=== PATIENT | male | born 1955 | race Caucasian/White ===

== ENCOUNTER 2020-08-04 12:48 | Emergency (ER) | payer MEDICARE, BC ==
[2020-08-04] MEDS ORDERED: Amoxicillin 500 MG Cap PO ONE (12:49)
[2020-08-04] MEDS ORDERED: Take Home: Amoxicillin 500 MG Cap, 2 Cap Pack PO ONE (12:59)
--- NOTE | 2020-08-04 13:00 | EDM.PDOC ---
ED HPI GENERAL MEDICAL PROBLEM - General Chief Complaint: General Stated Complaint: Sore Throat Time Seen by Provider: 08/04/20 12:49 Source of Information: Reports: Patient History Limitations: Reports: No Limitations - History of Present Illness INITIAL COMMENTS - FREE TEXT/NARRATIVE: This patient is a 65 year old male that presents to the ER with complaint of sore throat. This patient reports that yesterday he started with runny nose, congestion, drainage, and nonproductive cough, He reports then yesterday evening he started with sore throat on the left side. He reports hurts to eat and drink. Patient reports his was seen on Wednesday for sinus infection. Patient reports he has not had shortness of breath, fever, chest pain, neck pain or stiffness. He reports no airway closure or difficulty breathing. Denies loss of taste or smell. Onset: Gradual Onset Date: 08/03/20 Duration: Day(s): (1) Severity: Mild Improves with: Reports: None Worsens with: Reports: None Associated Symptoms: Reports: Cough. Denies: Confusion, Chest Pain, cough w sputum, Diaphoresis, Fever/Chills, Headaches, Loss of Appetite, Malaise, Nausea/Vomiting, Rash, Seizure, Shortness of Breath, Syncope, Weakness throat Pain Score (Numeric/FACES): 6 - Related Data Allergies Allergy/AdvReac Type Severity Reaction Status Date / Time No Known Allergies Allergy Verified 08/04/20 12:49 Home Meds: Home Meds Ibuprofen 400 mg PO BID 07/18/19 [History] Lisinopril/Hydrochlorothiazide [Lisinopril-Hctz 20-25 mg Tab] 1 tab PO DAILY 07/18/19 [History] Metoprolol Succinate 50 mg PO DAILY 07/18/19 [History] Potassium Chloride 10 meq PO BID 07/18/19 [History] amLODIPine Besylate [Amlodipine Besylate] 10 mg PO DAILY 07/18/19 [History] Amoxicillin 1,000 mg PO DAILY #16 capsule 08/04/20 [Rx] Past Medical History Cardiovascular History: Reports: Hypertension - Past Surgical History GI Surgical History: Reports: Hernia Repair/Other Musculoskeletal Surgical History: Reports: Other (See Below) Other Musculoskeletal Surgeries/Procedures:: Right hand tendon repair ED ROS GENERAL - Review of Systems Review Of Systems: See Below Constitutional: Reports: No Symptoms HEENT: Reports: Rhinitis, Sinus Problem, Throat Pain. Denies: Throat Swelling Respiratory: Reports: No Symptoms, Cough. Denies: Shortness of Breath, Wheezing, Pleuritic Chest Pain, Sputum, Hemoptysis Cardiovascular: Reports: No Symptoms Endocrine: Reports: No Symptoms GI/Abdominal: Reports: No Symptoms : Reports: No Symptoms Musculoskeletal: Reports: No Symptoms Skin: Reports: No Symptoms Neurological: Reports: No Symptoms Psychiatric: Reports: No Symptoms Hematologic/Lymphatic: Reports: No Symptoms Immunologic: Reports: No Symptoms ED EXAM, GENERAL - Physical Exam Exam: See Below Exam Limited By: No Limitations General Appearance: Alert, WD/WN, No Apparent Distress Eye Exam: Bilateral Eye: Normal Inspection, PERRL Ears: Normal External Exam, Normal Canal, Hearing Grossly Normal, Normal TMs Ear Exam: Bilateral Ear: Auricle Normal, Canal Normal, TM normal Nose: Normal Inspection, Normal Mucosa, No Blood Throat/Mouth: Normal Lips, Normal Teeth, Normal Gums, Normal Voice, No Airway Compromise, Other (post nasal gtt, pharyngeal erythema. No exudate, no swelling, no peritonsular abscess.) Head: Atraumatic, Normocephalic Neck: Normal Inspection, Supple, Non-Tender, Full Range of Motion. No: Lymphadenopathy (L), Lymphadenopathy (R) Respiratory/Chest: No Respiratory Distress, Lungs Clear, Normal Breath Sounds, No Accessory Muscle Use Cardiovascular: Normal Peripheral Pulses, Regular Rate, Rhythm, No Edema, No Gallop, No JVD, No Murmur, No Rub Peripheral Pulses: 2+: Radial (L), Radial (R) Extremities: Normal Inspection Neurological: Alert, Oriented Psychiatric: Normal Affect, Normal Mood Skin Exam: Warm, Dry, Intact, Normal Color, No Rash Lymphatic: No Adenopathy Course - Vital Signs Last Recorded V/S: Last Vital Signs Temp 98.1 F 08/04/20 12:49 Pulse 84 08/04/20 12:49 Resp 16 08/04/20 12:49 BP 147/79 H 08/04/20 12:49 Pulse Ox 98 08/04/20 12:49 - Orders/Labs/Meds Meds: Medications Discontinued Medications Generic Name Dose Route Start Last Admin Trade Name Freq PRN Reason Stop Dose Admin Amoxicillin 2 packet 08/04/20 12:59 08/04/20 13:04 Take Home: Amoxicillin 500 Mg, 2 Cap Pack PO 08/04/20 13:00 2 packet ONETIME ONE Administration Departure - Departure Time of Disposition: 12:55 Disposition: Home, Self-Care 01 Condition: Fair Clinical Impression: Viral pharyngitis, Viral upper respiratory illness - Discharge Information *PRESCRIPTION DRUG MONITORING PROGRAM REVIEWED*: Not Applicable *COPY OF PRESCRIPTION DRUG MONITORING REPORT IN PATIENT OMER: Not Applicable Prescriptions: Amoxicillin 1,000 mg PO DAILY #16 capsule Instructions: Pharyngitis, [id number] Forms: ED Department Discharge Additional Instructions: Followup with primary care provider if no improvement or worsening Return to the ER for worsening of condition or any emergent concerns such as airway closing, not able to swallow, or other concerns May use over the counter numbing throat sprays May use over the counter medications for cold symptoms Amoxicillin 500mg 2 pills once a day for 10 days total #4 given take home in ER. Remaining sent to pharmacy Sepsis Event Note (ED) - Focused Exam Vital Signs: Vital Signs Temp Pulse Resp BP Pulse Ox 08/04/20 12:49 98.1 F 84 16 147/79 H 98 - Assessment/Plan Plan: PLEASE SEE RN NOTE FOR PFSH
== END 2020-08-04 13:34 | disposition home or self-care (01) ==
LOC: CC.ED 12:48
DX: J02.9 Acute pharyngitis, unspecified (principal); I10 Essential (primary) hypertension; Z79.899 Other long term (current) drug therapy
CPT/HCPCS: 99283; A9270-GY

== ENCOUNTER 2020-09-23 11:34 | Emergency (ER) | payer MEDICARE, BC ==
[2020-09-23 12:28] LABS: CHLORIDE,CL 102 mEq/L (98-106); SODIUM,NA 141 mEq/L (136-145)
--- NOTE | 2020-09-23 12:29 | EDM.PDOC ---
<Kemar Cooper - Last Filed: 09/23/20 16:55> ED HPI GENERAL MEDICAL PROBLEM - General Chief Complaint: Cardiovascular Problem Stated Complaint: PALPITATIONS/CAME FROM THE CLINIC Time Seen by Provider: 09/23/20 11:34 Source of Information: Reports: Patient History Limitations: Reports: No Limitations - History of Present Illness INITIAL COMMENTS - FREE TEXT/NARRATIVE: Pk is a 65 yo male who presented to the clinic today with concerns of a fast heart rate. He has been feeling palpitations since yesterday and admits he had the same thing a little over a year ago. Was transferred to [facility] in [place] and underwent a complete cardiac workup. States everything came back okay then. Admits he was discharge home on a blood thinner, metoprolol and Rythmol. Hasn't had an episode since. States on Wednesday morning around 0430 he did wake up and just felt restless. Admits he called into the ED yesterday and they told him to continue taking his blood thinner and cardiac medications. Symptoms still present this morning and presented to the clinic. Denies any COVID symptoms; however does state his niece was found positive about a week ago and was around her briefly 10 days ago. Location: Reports: Chest - Related Data Allergies Allergy/AdvReac Type Severity Reaction Status Date / Time No Known Allergies Allergy Verified 09/23/20 11:55 Home Meds: Home Meds Ibuprofen 400 mg PO BID PRN 07/18/19 [History] amLODIPine Besylate [Amlodipine Besylate] 10 mg PO DAILY 07/18/19 [History] Apixaban [Eliquis] 5 mg PO BID 09/23/20 [History] Metoprolol Tartrate 25 mg PO BID #60 tablet 09/23/20 [Rx] Propafenone HCl 150 mg PO TID 09/23/20 [History] atorvaSTATin [Lipitor] 10 mg PO DAILY 09/23/20 [History] Past Medical History Cardiovascular History: Reports: Afib, Arrhythmia, Hypertension Respiratory History: Reports: None Gastrointestinal History: Reports: Other (See Below) (obesity) Genitourinary History: Reports: None Musculoskeletal History: Reports: None Neurological History: Reports: None Psychiatric History: Reports: Anxiety - Past Surgical History GI Surgical History: Reports: Hernia Repair/Other Musculoskeletal Surgical History: Reports: Other (See Below) Other Musculoskeletal Surgeries/Procedures:: Right hand tendon repair Social & Family History - Family History Family Medical History: Noncontributory ED ROS GENERAL - Review of Systems Constitutional: Denies: Fever, Chills, Weakness, Diaphoresis, Decreased Appetite HEENT: Reports: No Symptoms Respiratory: Denies: Shortness of Breath, Wheezing, Cough Cardiovascular: Reports: Palpitations. Denies: Chest Pain, Lightheadedness, Syncope GI/Abdominal: Reports: No Symptoms : Reports: No Symptoms Musculoskeletal: Reports: No Symptoms Skin: Reports: No Symptoms Neurological: Reports: No Symptoms. Denies: Dizziness, Headache Psychiatric: Reports: Anxiety (states just an anxious feeling) ED EXAM, GENERAL - Physical Exam Exam: See Below Exam Limited By: No Limitations General Appearance: Alert, WD/WN, No Apparent Distress Ears: Normal External Exam, Normal Canal, Hearing Grossly Normal, Normal TMs Nose: Normal Inspection, Normal Mucosa, No Blood Throat/Mouth: Normal Inspection, Normal Lips, Normal Teeth, Normal Gums, Normal Oropharynx, Normal Voice, No Airway Compromise Head: Atraumatic, Normocephalic Neck: Normal Inspection, Supple, Non-Tender Respiratory/Chest: No Respiratory Distress, Lungs Clear, Normal Breath Sounds, No Accessory Muscle Use Cardiovascular: No Murmur, Tachycardia GI/Abdominal: Normal Bowel Sounds, Soft, No Organomegaly, No Distention Extremities: Normal Inspection, Normal Range of Motion, No Pedal Edema, Normal Capillary Refill Neurological: Alert, Oriented, Normal Cognition, No Motor/Sensory Deficits Psychiatric: Normal Affect, Normal Mood Skin Exam: Warm, Dry, Intact, Normal Color, No Rash Course - Re-Assessments/Exams Free Text/Narrative Re-Assessment/Exam: Consulted with dough scaler and mixer at [facility]. Recommend giving Rhythmol dose this afternoon and monitor if heart rate decreases. Recommend having cardiac event monitor placed as well. Patient transferred to the floor under extended ER and afternoon dose of Rhythmol was given. Heart rate did not slow down and remained in the 120's. Patient was given 25mg of Metoprolol Tartrate which did slow rate down to low 100's. Will observe for a few hours to confirm rate is controlled and symptoms subsided. Consulted with Penny Bae, on- call provider, and is aware of current treatment. Departure - Departure Disposition: Home, Self-Care 01 Clinical Impression: Atrial fibrillation with RVR Prescriptions: Metoprolol Tartrate 25 mg PO BID #60 tablet Instructions: Atrial Fibrillation, [id number] Referrals: Jaren Parikh MD [Primary Care Provider] - Forms: ED Department Discharge Additional Instructions: - Switch to 25 mg Metoprolol Tartrate twice daily. Script sent to [facility]. - Stop Metoprolol Succinate 25 mg daily - Continue all other home medications - Event monitor to be placed at time of discharge. Will follow up pending results. - Monitor BP at home daily - Follow up with PCP for recheck 5-7 days, sooner if needed - Return to ED for any emergent needs <Penny Powell - Last Filed: 09/23/20 21:02> ED HPI GENERAL MEDICAL PROBLEM - General Source of Information: Reports: Patient History Limitations: Reports: No Limitations - History of Present Illness Location: Reports: Chest ED ROS GENERAL - Review of Systems Review Of Systems: See Below Course - Vital Signs Last Recorded V/S: Last Vital Signs Temp 98.9 F 09/23/20 18:31 Pulse 83 09/23/20 18:31 Resp 16 09/23/20 18:31 BP 110/73 09/23/20 18:31 Pulse Ox 96 09/23/20 18:31 - Orders/Labs/Meds Orders: Active Orders 24 hr Category Date Time Status Chest 2V [CR] Stat Exams 09/23/20 11:38 Taken Event Monitor [EK] Routine Ther 09/23/20 Ordered Labs: Laboratory Tests 09/23/20 09/23/20 09/23/20 Range/Units 11:38 12:02 12:02 WBC 11.6 H (5.0-10.0) 10^3/uL RBC 5.89 (4.50-6.00) 10^6/uL Hgb 16.7 (14.0-18.0) g/dL Hct 50.1 (40.0-54.0) % MCV 85.1 (82.0-94.0) fL MCH 28.4 (27.0-32.0) pg MCHC 33.3 (33.0-38.0) g/dL RDW Coeff of Delma 14.5 (11.0-15.0) % Plt Count 333 (150-400) 10^3/uL Neut % (Auto) 87.2 H (35-85) % Lymph % (Auto) 6.5 L (10-55) % Hardeman % (Auto) 5.9 (0-16) % Eos % (Auto) 0.1 (0-5) % Baso % (Auto) 0.3 (0-3) % Neut # (Auto) 10.10 H (1.80-7.00) 10^3/uL Lymph # (Auto) 0.75 L (1.00-4.80) 10^3/uL Hardeman # (Auto) 0.68 (0.00-0.80) 10^3/uL Eos # (Auto) 0.01 (0.00-0.45) 10^3/uL Baso # (Auto) 0.04 10^3/uL Sodium 141 (136-145) mEq/L Potassium 3.5 (3.5-5.0) mEq/L Chloride 102 (98-106) mEq/L Carbon Dioxide 29 (21-32) mmol/L BUN 16 (7-18) mg/dL Creatinine 1.1 (0.7-1.3) mg/dL Est Cr Clr Drug Dosing 71.31 mL/min Estimated GFR (MDRD) > 60 (>=60) mL/min Glucose 134 H (75-99) mg/dL Calcium 9.5 (8.4-10.1) mg/dL Total Bilirubin 1.0 (0.0-1.0) mg/dL AST 19 (15-37) U/L ALT 23 (12-78) U/L Alkaline Phosphatase 104 (46-116) U/L Creatine Kinase 103 (35-232) U/L Troponin I 0.042 (0.00-0.06) ng/mL Total Protein 7.8 (6.4-8.2) g/dL Albumin 4.0 (3.4-5.0) g/dL TSH, Ultra Sensitive 0.72 (0.36-5.60) uIU/mL SARS CoV-2 RNA Rapid SHITAL Negative (NEGATIVE) Meds: Medications Discontinued Medications Generic Name Dose Route Start Last Admin Trade Name Freq PRN Reason Stop Dose Admin Metoprolol Tartrate 25 mg 09/23/20 16:00 09/23/20 16:06 Lopressor PO 09/23/20 16:01 25 mg ONETIME ONE Administration Departure - Departure Time of Disposition: 18:30 Condition: Good Sepsis Event Note (ED) - Focused Exam Vital Signs: Vital Signs Temp Pulse Pulse Resp BP BP Pulse Ox 09/23/20 18:31 98.9 F 83 16 110/73 96 09/23/20 16:57 98.9 F 92 16 124/60 96 09/23/20 16:06 128 H 127/78 09/23/20 15:59 99.1 F 128 H 16 128/78 96 09/23/20 12:50 98.0 F 128 H 20 150/87 H 99 - Problem List & Annotations (1) Atrial fibrillation with RVR SNOMED Code(s): 559896416566451 Code(s): I48.91 - UNSPECIFIED ATRIAL FIBRILLATION Status: Acute - Assessment/Plan Assessment:: A Fib with RVR Plan: Patient was initially seen in ED by my colleague Ej Cooper. I resumed care as he was kept in extended ER for ongoing monitoring. Cardiology was consulted and recommended giving dose of Rhythmol. He did get dose of this and pulse improved to 100s. He was monitored for some time. Did then opt to give 25 mg dose of metoprolol tartrate. He was monitored for 2 hours following this. Pulse did improve to 70s-80s. BP stable 110/70s. Patient was feeling better. He will be discharged home with Cardiac Event monitor. Will switch to metoprolol tartrate 25 mg BID vs. metoprolol succinate 25 mg. He is advised to continue all other home medications and monitor his BP closely at home to ensure he is remaining normotensive. He is advised to follow up in clinic with PCP in 5-7 days or return to ED for any worsening of conditions. Patient was discharged from facility in satisfactory condition.
[2020-09-23] MEDS ORDERED: Metoprolol Tartrate 25 MG Tab PO ONE (16:00)
== END 2020-09-23 19:45 | disposition home or self-care (01) ==
LOC: CC.ED 11:34
DX: I48.91 Unspecified atrial fibrillation (principal); Z20.828 Contact with and (suspected) exposure to other viral communicable diseases; I10 Essential (primary) hypertension; E66.9 Obesity, unspecified; Z79.01 Long term (current) use of anticoagulants; Z79.899 Other long term (current) drug therapy; Z68.42 Body mass index [BMI] 45.0-49.9, adult
CPT/HCPCS: 36415; 71046; 80053; 82550; 84443; 84484; 85025; 93270; 99284; 99285; A9270; U0002; 93005